=== PATIENT | male | born 1950 | race Caucasian/White ===

== ENCOUNTER 2025-08-12 09:35 | Inpatient (IN) | payer OTHER ==
[2025-08-12] MEDS: SODIUM CHLORIDE 0.9% 500 ML INFUS.BAG IV ONE ×2 (09:54→11:05)
[2025-08-12 10:11] LABS: ABSOLUTE IMMATURE GRANULOCYTES 0.08 x10^3/uL (0.0-0.031); BASOPHILS # 0.04 x10^3/uL (0.01-0.08); EOSINOPHIL % 0.2 % (0.8-7.0); EOSINOPHILS # 0.02 x10^3/uL (0.04-0.54); MCHC 29.2 g/dl (32.3-36.5); MEAN CELL VOLUME 113.4 fl (79.0-92.2); MEAN PLT VOLUME 10.1 fl (9.4-12.4); MONOCYTE # 1.35 x10^3/uL (0.30-0.82); MONOCYTE % 14.8 % (5.3-12.2); RDW 14.7 % (12.2-16.6)
[2025-08-12 10:13] LABS: BG HCT 38.0 % (35.4-49); VENOUS BASE EXCESS 15.0 mmol/L (-2-2); VENOUS O2 SATURATION 38.0 % (70-80)
[2025-08-12 10:23] LABS: VENOUS PCO2 144.5 mmHg (38-52); VENOUS PH 7.153 (7.310-7.410)
[2025-08-12 10:29] LABS: GLUCOSE,RANDOM 109.0 mg/dL (74-106)
[2025-08-12 10:30] LABS: TOT PROT 5.8 g/dl (6.4-8.2)
[2025-08-12 10:31] LABS: CO2 39.0 mmol/L (21-32)
[2025-08-12 10:32] LABS: ALK PHOS 44.0 U/L (40-150)
[2025-08-12 10:35] LABS: SGOT/AST 48.0 U/L (5-34); SGPT/ALT 29.0 U/L (0-55)
[2025-08-12 10:36] LABS: CREATININE 1.47 mg/dL (0.55-1.3)
[2025-08-12 10:45] LABS: INR 1.2 (0.83-1.09); PROTHROMBIN TIME (PATIENT) 13.1 SEC (9.7-13.0)
[2025-08-12 10:48] LABS: ACTIVATED PTT 21.3 SECONDS (25.2-36.5)
[2025-08-12 11:09] LABS: URINE APPEARANCE CLOUDY; URINE COLOR DK YELLOW; URINE GLUCOSE (UA) NEGATIVE (NEGATIVE)
[2025-08-12 11:10] LABS: URINE BILIRUBIN 1+ (NEGATIVE); URINE KETONE TRACE (NEGATIVE); URINE LEUK ESTERASE TRACE (NEGATIVE); URINE NITRITE NEGATIVE (NEGATIVE); URINE PROTEIN 2+ (NEGATIVE); URINE UROBILINOGEN 1.0 mg/dL (0.2-1.0)
[2025-08-12] MEDS ORDERED: PIPERACILLIN/TAZOB 3.375 GM 3.375 GM/50 ML BAG IVPB ONE (13:19)
[2025-08-12 13:27] LABS: BG HCT 36.0 % (35.4-49); VENOUS BASE EXCESS 9.0 mmol/L (-2-2); VENOUS O2 SATURATION 19.3 % (70-80)
[2025-08-12] MEDS: PIPERACILLIN/TAZOB 3.375 GM 3.375 GM in DEXTROSE 5%-WATER - 50 ML IVPB ONE (13:28)
[2025-08-12 13:31] LABS: VENOUS PCO2 > 148.5 mmHg (38-52); VENOUS PH 7.063 (7.310-7.410)
[2025-08-12] MEDS: VANCOMYCIN HCL 1,500 MG in DEXTROSE 5%-WATER - 500 ML IVPB ONE (14:24)
[2025-08-12] MEDS: VANCOMYCIN PREMIX 1.5 GM 1,500 MG/300 ML BAG IVPB ONE (14:30)
[2025-08-12] MEDS: NOREPINEPHRINE BITARTRATE 4,000 MCG in DEXTROSE 5%-WATER - 496 ML IV SCH (14:30)
[2025-08-12 16:23] LABS: ARTERIAL BLD GAS O2 SATURATION 95.7 % (95-98); ARTERIAL BLOOD GAS BASE EXCESS 7.8 mmol/L (-2-2); ARTERIAL BLOOD GAS PCO2 114.90 mmHg (35-45); ARTERIAL BLOOD GAS PO2 105.4 mmHg (80-100); BG HCT 34.0 % (35.4-49)
[2025-08-12 16:28] LABS: ALLENS TEST POSITIVE
[2025-08-12 16:29] LABS: VENT MODE S/T; VENT RATE 24
[2025-08-12 18:13] VITALS: BMI 33.5
[2025-08-12] MEDS: DEXMEDETOMIDINE PREMIX 400 MCG/100 ML BAG IVPB SCH (18:46)
[2025-08-12] MEDS: PIPERACILLIN/TAZOB 3.375 GM 3.375 GM in DEXTROSE 5%-WATER - 50 ML IVPB SCH (20:22)
[2025-08-12] MEDS: CHLORHEXIDINE GLUCONATE 4% CLEANSER FOR DECOLONIZATION TP SCH (21:45)
[2025-08-12] MEDS: MUPIROCIN 2% TOPICAL OINTMENT FOR DECOLONIZATION NS SCH (21:45)
[2025-08-12] MEDS: HEPARIN NA (PORCINE) 5,000 UNITS/ML 1ML VIAL SQ SCH (21:45)
[2025-08-13] MEDS: VANCOMYCIN/WATER 1250 MG 1,250 MG/250 ML BAG IVPB SCH (01:45)
[2025-08-13 06:49] LABS: INR 1.16 (0.83-1.09); PROTHROMBIN TIME (PATIENT) 12.6 SEC (9.7-13.0)
[2025-08-13 06:51] LABS: ABSOLUTE IMMATURE GRANULOCYTES 0.06 x10^3/uL (0.0-0.031); ACTIVATED PTT 24.1 SECONDS (25.2-36.5); BASOPHILS # 0.02 x10^3/uL (0.01-0.08); EOSINOPHIL % 0.4 % (0.8-7.0); EOSINOPHILS # 0.03 x10^3/uL (0.04-0.54); MCHC 28.8 g/dl (32.3-36.5); MEAN CELL VOLUME 113.6 fl (79.0-92.2); MEAN PLT VOLUME 10.3 fl (9.4-12.4); MONOCYTE # 1.01 x10^3/uL (0.30-0.82); MONOCYTE % 13.5 % (5.3-12.2); RDW 14.5 % (12.2-16.6)
[2025-08-13 07:17] LABS: GLUCOSE,RANDOM 105.0 mg/dL (74-106); TOT PROT 5.0 g/dl (6.4-8.2)
[2025-08-13 07:18] LABS: CO2 39.0 mmol/L (21-32)
[2025-08-13 07:20] LABS: ALK PHOS 45.0 U/L (40-150)
[2025-08-13 07:22] LABS: SGOT/AST 23.0 U/L (5-34); SGPT/ALT 25.0 U/L (0-55)
[2025-08-13 07:23] LABS: CREATININE 1.0 mg/dL (0.55-1.3)
[2025-08-13] MEDS ORDERED: ARTIFICIAL TEARS OPHTHALMIC DROPS OU PRN (08:43)
[2025-08-13] MEDS ORDERED: ALBUTEROL SO4 2.5/IPRATROPIUM 0.5 INH SOL 3 ML VIAL.NEB. NEB PRN (08:43)
[2025-08-13] MEDS: CLOPIDOGREL BISULFATE 75 MG TABLET (FP) PO SCH (09:14)
[2025-08-13] MEDS: DORZOLAMIDE HCL/TIMOLOL OPHTHALMIC SOLUTION 10 ML BOTTLE OU SCH (09:15)
[2025-08-13] MEDS: levETIRAcetam 500 MG TABLET (FP) PO SCH (09:15)
[2025-08-13] MEDS: TOPIRAMATE 25 MG TABLET PO SCH (09:15)
[2025-08-13] MEDS: BUDESONIDE/FORMETEROL FUMARATE 160/4.5 mcg INHALER IH SCH (09:16)
[2025-08-13] MEDS: ZIPRASIDONE 40 MG CAPSULE PO SCH (09:16)
[2025-08-13] MEDS: AMANTADINE HCL 100 MG TABLET PO SCH (09:17)
[2025-08-13] MEDS: DIVALPROEX SODIUM 250 MG TABLET E.C. PO SCH (10:01)
[2025-08-13] MEDS: DIVALPROEX SODIUM 500 MG TABLET E.C. PO SCH ×2 (14:17→14:20)
[2025-08-13] MEDS: ACETAMINOPHEN 1000 MG/100 ML BAG IVPB ONE (19:57)
[2025-08-13] MEDS: ATORVASTATIN CA 40 MG TABLET (FP) PO SCH (21:42)
[2025-08-13] MEDS: LATANOPROST 0.005% OPHTH SOLN 2.5ML BOTTLE OU SCH (22:02)
[2025-08-14 07:00] LABS: ABSOLUTE IMMATURE GRANULOCYTES 0.03 x10^3/uL (0.0-0.031); BASOPHILS # 0.03 x10^3/uL (0.01-0.08); EOSINOPHIL % 1.6 % (0.8-7.0); EOSINOPHILS # 0.10 x10^3/uL (0.04-0.54); MCHC 28.6 g/dl (32.3-36.5); MEAN CELL VOLUME 112.2 fl (79.0-92.2); MEAN PLT VOLUME 10.4 fl (9.4-12.4); MONOCYTE # 0.74 x10^3/uL (0.30-0.82); MONOCYTE % 12.0 % (5.3-12.2); RDW 14.5 % (12.2-16.6)
[2025-08-14 07:25] LABS: GLUCOSE,RANDOM 88.0 mg/dL (74-106)
[2025-08-14 07:26] LABS: CO2 36.0 mmol/L (21-32); TOT PROT 4.8 g/dl (6.4-8.2)
[2025-08-14 07:31] LABS: CREATININE 0.84 mg/dL (0.55-1.3); SGOT/AST 12.0 U/L (5-34)
[2025-08-14 07:59] LABS: SGPT/ALT 12.0 U/L (0-55)
[2025-08-14 08:17] LABS: ALK PHOS 39.0 U/L (40-150)
[2025-08-14] MEDS: TAMSULOSIN HCL 0.4 MG CAP PO SCH (09:11)
[2025-08-14] MEDS: LEVOTHYROXINE NA 150 MCG TABLET PO SCH (09:12)
[2025-08-14 10:48] LABS: ABSOLUTE IMMATURE GRANULOCYTES 0.05 x10^3/uL (0.0-0.031); BASOPHILS # 0.04 x10^3/uL (0.01-0.08); EOSINOPHIL % 2.2 % (0.8-7.0); EOSINOPHILS # 0.16 x10^3/uL (0.04-0.54); MCHC 28.5 g/dl (32.3-36.5); MEAN CELL VOLUME 112.3 fl (79.0-92.2); MEAN PLT VOLUME 10.0 fl (9.4-12.4); MONOCYTE # 0.92 x10^3/uL (0.30-0.82); MONOCYTE % 12.6 % (5.3-12.2); RDW 14.4 % (12.2-16.6)
[2025-08-14 11:09] LABS: GLUCOSE,RANDOM 147.0 mg/dL (74-106); TOT PROT 4.9 g/dl (6.4-8.2)
[2025-08-14 11:10] LABS: CO2 38.0 mmol/L (21-32)
[2025-08-14 11:12] LABS: ALK PHOS 41.0 U/L (40-150)
[2025-08-14 11:14] LABS: SGOT/AST 16.0 U/L (5-34); SGPT/ALT 13.0 U/L (0-55)
[2025-08-14 11:15] LABS: CREATININE 0.79 mg/dL (0.55-1.3)
[2025-08-14] MEDS ORDERED: ARTIFICIAL TEARS OPHTHALMIC DROPS OU PRN (12:45)
[2025-08-14] MEDS ORDERED: ALBUTEROL SO4 2.5/IPRATROPIUM 0.5 INH SOL 3 ML VIAL.NEB. NEB PRN (12:45)
[2025-08-14] MEDS: HYDROCORTISONE 0.5% TOPICAL CREAM 30 GM TUBE TP SCH (13:47)
[2025-08-14] MEDS: HEPARIN NA (PORCINE) 5,000 UNITS/ML 1ML VIAL SQ SCH (13:47)
[2025-08-14] MEDS: DIVALPROEX SODIUM 500 MG TABLET E.C. PO SCH (13:48)
[2025-08-14] MEDS: VANCOMYCIN/WATER 1250 MG 1,250 MG/250 ML BAG IVPB SCH (16:19)
[2025-08-14] MEDS: PIPERACILLIN/TAZOB 3.375 GM 3.375 GM in DEXTROSE 5%-WATER - 50 ML IVPB SCH (17:40)
[2025-08-14] MEDS: DIVALPROEX SODIUM 250 MG TABLET E.C. PO SCH (17:40)
[2025-08-14] MEDS: ZIPRASIDONE 40 MG CAPSULE PO SCH (18:24)
[2025-08-14] MEDS: LATANOPROST 0.005% OPHTH SOLN 2.5ML BOTTLE OU SCH (21:26)
[2025-08-14] MEDS: BUDESONIDE/FORMETEROL FUMARATE 160/4.5 mcg INHALER IH SCH (21:27)
[2025-08-14] MEDS: DORZOLAMIDE HCL/TIMOLOL OPHTHALMIC SOLUTION 10 ML BOTTLE OU SCH (21:27)
[2025-08-14] MEDS ORDERED: MUPIROCIN 2% TOPICAL OINTMENT FOR DECOLONIZATION NS SCH (22:00)
[2025-08-14] MEDS ORDERED: CHLORHEXIDINE GLUCONATE 4% CLEANSER FOR DECOLONIZATION TP SCH (22:00)
[2025-08-14] MEDS: VANCOMYCIN/WATER 1250 MG 1,250 MG/250 ML BAG IVPB ONE (22:45)
[2025-08-14] MEDS: levETIRAcetam 500 MG TABLET (FP) PO SCH (23:01)
[2025-08-14] MEDS: TOPIRAMATE 25 MG TABLET PO SCH (23:02)
[2025-08-14] MEDS: ATORVASTATIN CA 40 MG TABLET (FP) PO SCH (23:02)
[2025-08-14] MEDS: AMANTADINE HCL 100 MG TABLET PO SCH (23:02)
[2025-08-15] MEDS: ACETAMINOPHEN 500 MG TABLET (FP) PO PRN (04:52)
[2025-08-15] MEDS: LEVOTHYROXINE NA 150 MCG TABLET PO SCH (06:34)
[2025-08-15] MEDS: CLOPIDOGREL BISULFATE 75 MG TABLET (FP) PO SCH (09:17)
[2025-08-15] MEDS: TAMSULOSIN HCL 0.4 MG CAP PO SCH ×2 (09:18→23:19)
[2025-08-15] MEDS: SODIUM PHOSPHATE - 15 MM in DEXTROSE 5%-WATER - 250 ML IV ONE (09:20)
[2025-08-15 16:47] LABS: GLUCOSE,RANDOM 113.0 mg/dL (74-106)
[2025-08-15 16:48] LABS: TOT PROT 4.8 g/dl (6.4-8.2)
[2025-08-15 16:49] LABS: CO2 39.0 mmol/L (21-32)
[2025-08-15 16:50] LABS: ALK PHOS 46.0 U/L (40-150)
[2025-08-15 16:53] LABS: CREATININE 0.76 mg/dL (0.55-1.3); SGOT/AST 11.0 U/L (5-34); SGPT/ALT 9.0 U/L (0-55)
[2025-08-15] MEDS: SACUBITRIL/VALSARTAN 24 MG-26 MG TABLET PO SCH (23:16)
[2025-08-16 08:40] LABS: BASOPHILS # 0.02 x10^3/uL (0.01-0.08); MONOCYTE # 0.73 x10^3/uL (0.30-0.82); MONOCYTE % 10.1 % (5.3-12.2)
[2025-08-16 08:43] LABS: ABSOLUTE IMMATURE GRANULOCYTES 0.07 x10^3/uL (0.0-0.031); EOSINOPHIL % 2.1 % (0.8-7.0); EOSINOPHILS # 0.15 x10^3/uL (0.04-0.54); IMMATURE PLATELET FRACTION # 2.30 x10^3/uL; MCHC 30.4 g/dl (32.3-36.5); MEAN CELL VOLUME 108.0 fl (79.0-92.2); MEAN PLT VOLUME 9.4 fl (9.4-12.4); RDW 13.8 % (12.2-16.6)
[2025-08-16 09:31] LABS: GLUCOSE,RANDOM 84.0 mg/dL (74-106); TOT PROT 4.8 g/dl (6.4-8.2)
[2025-08-16 09:32] LABS: CO2 36.0 mmol/L (21-32)
[2025-08-16 09:34] LABS: ALK PHOS 37.0 U/L (40-150)
[2025-08-16 09:37] LABS: CREATININE 0.72 mg/dL (0.55-1.3); SGOT/AST 11.0 U/L (5-34); SGPT/ALT 7.0 U/L (0-55)
[2025-08-16] MEDS ORDERED: CLOPIDOGREL BISULFATE 75 MG TABLET (FP) PO SCH (10:00)
[2025-08-16] MEDS: SACUBITRIL/VALSARTAN 24 MG-26 MG TABLET PO SCH (10:17)
[2025-08-16 13:14] LABS: ALLENS TEST POSITIVE; ARTERIAL BLD GAS O2 SATURATION 86.3 % (95-98); ARTERIAL BLOOD GAS BASE EXCESS 8.8 mmol/L (-2-2); ARTERIAL BLOOD GAS PCO2 69.80 mmHg (35-45); ARTERIAL BLOOD GAS PO2 56.2 mmHg (80-100); BG HCT 32.0 % (35.4-49); O2 CONTENT 1.34 % vol
[2025-08-17] MEDS: HALOPERIDOL LACTATE 5 MG/ML IM ONE (03:24)
[2025-08-17] MEDS: diazePAM CARPU-JECT 10 MG/2 ML DISP.SYRIN IVPUSH ONE (03:26)
[2025-08-17 08:34] LABS: MEAN CELL VOLUME 108.0 fl (79.0-92.2)
[2025-08-17 08:36] LABS: IMMATURE PLATELET FRACTION # 2.30 x10^3/uL; MCHC 30.0 g/dl (32.3-36.5); MEAN PLT VOLUME 9.5 fl (9.4-12.4); RDW 13.9 % (12.2-16.6)
[2025-08-17 09:05] LABS: GLUCOSE,RANDOM 98.0 mg/dL (74-106)
[2025-08-17 09:07] LABS: CO2 36.0 mmol/L (21-32)
[2025-08-17 09:11] LABS: CREATININE 0.65 mg/dL (0.55-1.3)
[2025-08-17 10:09] LABS: ARTERIAL BLD GAS O2 SATURATION 96.6 % (95-98); ARTERIAL BLOOD GAS BASE EXCESS 11.0 mmol/L (-2-2); ARTERIAL BLOOD GAS PCO2 65.20 mmHg (35-45); ARTERIAL BLOOD GAS PO2 91.0 mmHg (80-100); BG HCT 33.0 % (35.4-49); O2 CONTENT 1.52 % vol
[2025-08-17 10:27] LABS: ALLENS TEST POSITIVE
[2025-08-17 12:45] VITALS: BP 157/80; PULSE 69; RESP 16; TEMP 97.3
== END 2025-08-17 16:03 | DRG 189 ==
LOC: JER 09:35 → JERBED 14:02 → JICU 17:09 → J6S 08-14 12:40
PROVIDERS: ADMIT Internal Medicine Pulmonary Disease; ATTEND Internal Medicine
PROC: 05HY33Z Insertion of Infusion Device into Upper Vein, Percutaneous Approach (ICD-10-PCS; principal; 2025-08-12)
DX: J96.22 Acute and chronic respiratory failure with hypercapnia (principal); G92.8 Other toxic encephalopathy; R53.2 Functional quadriplegia; E87.29 Other acidosis; J96.21 Acute and chronic respiratory failure with hypoxia; F31.9 Bipolar disorder, unspecified; I11.0 Hypertensive heart disease with heart failure; G20.A1 Parkinson's disease without dyskinesia, without mention of fluctuations; J44.9 Chronic obstructive pulmonary disease, unspecified; F03.90 Unspecified dementia, unspecified severity, without behavioral disturbance, psychotic disturbance, mood disturbance, and anxiety; F20.9 Schizophrenia, unspecified; I73.9 Peripheral vascular disease, unspecified; F79 Unspecified intellectual disabilities
CPT/HCPCS: 36415; 36600; 70450-TC; 70486-TC; 71045-TC-FY; 72125-TC; 73502-TC-LT-FY; 80048; 80053; 80164; 80177; 81003; 82803; 82962; 83605; 83735; 84100; 84484; 85025; 85027; 85610; 85730; 86850; 86900; 86901; 87040; 87086; 87481; 87637-QW; 93005; 93010; 93306-TC; 94660; 99291; G0480